=== PATIENT | female | born 1975 | race Asian ===

== ENCOUNTER 2024-06-26 03:57 | Inpatient (IN) | payer OTHER ==
[2024-06-22 11:06] VITALS: BMI 23.8
[2024-06-26] MEDS ORDERED: PROPOFOL 20 ML ONE (08:32)
[2024-06-26] MEDS ORDERED: ROCURONIUM BROMIDE 50 MG/5 ML SYRINGE ONE (08:32)
[2024-06-26] MEDS ORDERED: MIDAZOLAM HCL 2 MG/2 ML SINGLE DOSE VIAL ONE (08:32)
[2024-06-26] MEDS ORDERED: LIDOCAINE HCL/PF 2% SDV 5ML VIAL ONE (08:34)
[2024-06-26] MEDS ORDERED: ONDANSETRON 4 MG/2 ML VIAL IVPUSH PRN ×3 (08:42→12:57)
[2024-06-26] MEDS ORDERED: ROPIVACAINE HCL 0.5% 30ML VIAL ONE (08:49)
[2024-06-26] MEDS ORDERED: ACETAMINOPHEN INJECTION 100 ML IVPB ONE (08:49)
[2024-06-26] MEDS ORDERED: ceFAZolin SODIUM 1 GM VIAL ONE ×2 (09:23→13:45)
[2024-06-26] MEDS ORDERED: DEXAMETHASONE SOD PHOSPHATE 4 MG/1 ML VIAL ONE (09:23)
[2024-06-26] MEDS: ceFAZolin SODIUM 1 GM VIAL IVPB ONE (09:24)
[2024-06-26] MEDS ORDERED: ONDANSETRON 4 MG/2 ML VIAL ONE (10:21)
[2024-06-26] MEDS ORDERED: SUGAMMADEX SODIUM 200 MG/2 ML VIAL ONE (10:22)
[2024-06-26] MEDS ORDERED: KETOROLAC TROMETHAMINE 30 MG/1 ML VIAL ONE (10:32)
[2024-06-26] MEDS ORDERED: oxyCODONE HCL 5 MG TABLET PO PRN (10:53)
[2024-06-26] MEDS: LACTATED RINGERS SOLUTION 1,000 ML IV SCH (11:19)
[2024-06-26] MEDS ORDERED: PROMETHAZINE HCL 25 MG/1 ML VIAL IVPB PRN (12:57)
[2024-06-26] MEDS ORDERED: HYDROmorphone *PCA* 10MG/50ML DISP.SYRIN ONE (13:28)
[2024-06-26] MEDS: HYDROmorphone *PCA* 10MG/50ML DISP.SYRIN PCA SCH (13:30)
[2024-06-26] MEDS: ELECTROLYTE-148 SOLN 1,000 ML IV SCH (13:30)
[2024-06-26] MEDS: CEFAZOLIN SODIUM 2 GM in DEXTROSE 5%-WATER 100 ML IVPB SCH (13:53)
[2024-06-27] MEDS: ACETAMINOPHEN 1000 MG/100 ML BAG IVPB PRN (01:46)
[2024-06-27] MEDS: IBUPROFEN 800 MG/8 ML IJ IVPB PRN (04:02)
[2024-06-27 10:45] LABS: BASO % 0.1 % (0-2.0); EOS % 0.7 % (0-4.5); HEMATOCRIT 25.1 % (32.4-45.2); LYMPH % 28.2 % (8-40); MCH 22.9 pg (25.7-33.7); MCHC 31.8 g/dl (32.0-36.0); MEAN PLT VOLUME 7.4 fl (7.5-11.1); MONO % 11.3 % (3.8-10.2); NEUT % 59.7 % (42.8-82.8); PLATELET COUNT 291 10^3/uL (134-434); RBC 3.48 M/mm3 (3.60-5.2); RDW 17.1 % (11.6-15.6); WHITE BLOOD COUNT 7.2 K/mm3 (4.0-10.0)
[2024-06-27] MEDS: ENOXAPARIN NA (PORCINE) 40 MG/0.4 ML DISP.SYRIN SQ SCH (11:02)
[2024-06-27 11:09] LABS: CALCIUM 8.4 mg/dL (8.5-10.1)
[2024-06-27 11:10] LABS: BLOOD UREA NITROGEN 7.6 mg/dL (7-18)
[2024-06-27 11:13] LABS: CREATININE 0.7 mg/dL (0.55-1.3)
[2024-06-27] MEDS: IBUPROFEN 600 MG TABLET (FP) PO PRN (19:17)
[2024-06-27] MEDS: SIMETHICONE 80 MG TAB.CHEW (FP) PO PRN (22:29)
[2024-06-27] MEDS: DOCUSATE SODIUM 100 MG CAPSULE (FP) PO PRN (22:29)
[2024-06-28 00:52] VITALS: RESP 18
[2024-06-28 06:30] VITALS: BP 125/82; PULSE 65; TEMP 98.1
[2024-06-28 06:40] LABS: BASO % 0.3 % (0-2.0); EOS % 3.5 % (0-4.5); HEMATOCRIT 27.8 % (32.4-45.2); HEMOGLOBIN 8.6 GM/dL (10.7-15.3); LYMPH % 32.1 % (8-40); MCH 22.7 pg (25.7-33.7); MCHC 31.1 g/dl (32.0-36.0); MEAN PLT VOLUME 7.7 fl (7.5-11.1); MONO % 9.8 % (3.8-10.2); NEUT % 54.3 % (42.8-82.8); PLATELET COUNT 332 10^3/uL (134-434); RBC 3.81 M/mm3 (3.60-5.2); RDW 17.2 % (11.6-15.6); WHITE BLOOD COUNT 9.1 K/mm3 (4.0-10.0)
== END 2024-06-28 10:35 | disposition home or self-care (01) | DRG 743 ==
LOC: J2C 03:57 → J3W 14:41
PROVIDERS: ADMIT Obstetrics & Gynecology; ATTEND Obstetrics & Gynecology
PROC: 0DNW0ZZ Release Peritoneum, Open Approach (ICD-10-PCS; 2024-06-26)
PROC: 0UB10ZZ Excision of Left Ovary, Open Approach (ICD-10-PCS; 2024-06-26)
PROC: 0UT70ZZ Resection of Bilateral Fallopian Tubes, Open Approach (ICD-10-PCS; 2024-06-26)
PROC: 0UT20ZZ Resection of Bilateral Ovaries, Open Approach (ICD-10-PCS; 2024-06-26)
PROC: 0UT90ZL Resection of Uterus, Supracervical, Open Approach (ICD-10-PCS; principal; 2024-06-26 09:00)
DX: D25.9 Leiomyoma of uterus, unspecified (principal); N92.1 Excessive and frequent menstruation with irregular cycle; R10.2 Pelvic and perineal pain; N80.30 Endometriosis of pelvic peritoneum, unspecified; N73.6 Female pelvic peritoneal adhesions (postinfective); N83.202 Unspecified ovarian cyst, left side
CPT/HCPCS: 36415; 80048; 81025; 85025; 86850; 86900; 86901; 88305-TC; 94010; 94760; J0131